=== PATIENT | female | born 1985 | race Caucasian/White ===

== ENCOUNTER 2016-12-07 13:42 | Emergency (ER) | payer BC ==
[~2016-12-07] VITALS: Ht 147.3 cm; Wt 99.8 kg
[2016-12-07 13:56] VITALS: BP 129/90
--- NOTE | 2016-12-07 14:57 | NUR ---
PT AMBULATED TO BED 5
--- NOTE | 2016-12-07 15:00 | NUR ---
PT CAME TO ER W/C/O SOB X LAST 2 HR WITH LEFT SIDED CP PRESSURE RADIATING TO THE BACK.PT STATES IT HAPPENED AFTER EATING AND TAKING HER CLINDAMYCIN. PT VSTATES THAT SHE HAS PERSISTANT COUGHING, BODYACHES,FEVER X1 WK RX STARTED TAKING CLINDAMYCIN 300MG PO TID--12/06/2016 DX STREPTHROAT.PT DENIES MEDICAL HX.PT AAOX4;NO ACUTE DISTRESS NOTED AT THIS TIME;HOB ELEVATED;NEEDS ATTENDED;SAFETY PRECAUTION INSTITUTED;ALL MONITORS IN PLACED. MADE AWARE OF PT'S CONDITION.
--- NOTE | 2016-12-07 15:28 | NUR ---
DR TIDWELL AT BEDSIDE.
--- NOTE | 2016-12-07 15:38 | NUR ---
PT AMBULATED TO THE RESTROOOM.
--- NOTE | 2016-12-07 15:38 | NUR ---
Indio montero in [facility] - 12/07/16 at 1538 by MARYANN PT AMBULATED TO TE RESTROOOM
[2016-12-07] MEDS ORDERED: PROMETH/CODEINE 6.25-10MG/5ML 5 ML UDC PO ONE (15:40)
--- NOTE | 2016-12-07 15:47 | NUR ---
AWARE OF THE RESULT OF URINE DIPSTICK AND PREG
--- NOTE | 2016-12-07 16:54 | NUR ---
PT ALERT AND AWAKE; AT BEDSIDE;NO ACUTE DISTRESS NOTED AT THIS TIME;WILL CONTINUE TO MONITOR PT.
[2016-12-07] MEDS ORDERED: ALBUTEROL SULFATE/IPRATROPIU 3 ML SOL IH ONE (17:30)
--- NOTE | 2016-12-07 17:37 | NUR ---
RT AT BEDSIDE
[2016-12-07] MEDS ORDERED: KETOROLAC 60 MG/2 ML VIAL IM ONE (17:45)
[2016-12-07 18:40] VITALS: BP 127/78
--- NOTE | 2016-12-07 18:41 | NUR ---
Patient discharged with v/s stable. Written and verbal after care instructions given and explained. Patient alert, oriented and verbalized understanding of instructions. Ambulatory with steady gait. All questions addressed prior to discharge. ID band removed. Patient advised to follow up with PMD. Rx of PROMETHAZINE HYDROCHLORIDE given. Patient educated on indication of medication including possible reaction and side effects. Opportunity to ask questions provided and answered.
== END 2016-12-07 18:41 | disposition home or self-care (01) ==
LOC: MED 13:42
DX: R07.89 Other chest pain (principal); R06.02 Shortness of breath; R05 Cough; Z83.3 Family history of diabetes mellitus
CPT/HCPCS: 36415; 71010; 80048; 81002; 81025; 84484; 85379; 93005; 94640; 96372; 99285; J1885; J7620

== ENCOUNTER 2019-11-26 13:26 | Emergency (ER) | payer BC ==
[~2019-11-26] VITALS: Ht 170.2 cm; Wt 100.9 kg
[2019-11-26 13:48] VITALS: BP 125/71
--- NOTE | 2019-11-26 14:10 | NUR ---
34/F presents ambulatory to ED, c/o intermittent sharp RUQ/R Flank pain x2 days. Denies fever/chills, n/v/d, constipation or dysuria. 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 Reports R arm numbness when laying flat. Pt awake and alert, skin normal warm and dry, rr even and unlabored. Lung sounds clear BL. BS active x4, abd soft round tender to RUQ. Denies med hx or rx.
--- NOTE | 2019-11-26 16:07 | NUR ---
LAB AT BEDSIDE.
[2019-11-26 16:30] LABS: BASOPHILS % (AUTO) 0.4 % (0.0-2.0); EOSINOPHILS # (AUTO) 0.3 K/uL (0-0.4); EOSINOPHILS % (AUTO) 3.7 % (0.0-4.0); HEMATOCRIT 39.9 % (36-48); HEMOGLOBIN 13.7 g/dL (12.0-16.0); LYMPHOCYTES # (AUTO) 2.6 K/uL (2.5-16.5); LYMPHOCYTES % (AUTO) 35.8 % (20.5-51.1); MEAN CORPUSCULAR HEMOGLOBIN 29 pg (27-31); MEAN CORPUSCULAR HGB CONC 34 g/dL (33-37); MEAN CORPUSCULAR VOLUME 84.9 fL (80-94); MONOCYTES # (AUTO) 0.4 K/uL (0.8-1.0); NEUTROPHILS % (AUTO) 54.1 % (42.2-75.2); PLATELET COUNT (AUTO) 265 K/uL (140-450); RED CELL DISTRIBUTION WIDTH 13.4 % (11.6-13.7); WHITE BLOOD COUNT (AUTO) 7.3 K/uL (4.8-10.8)
[2019-11-26] MEDS ORDERED: KETOROLAC 60 MG/2 ML VIAL IM ONE (16:35)
[2019-11-26 16:47] LABS: ALBUMIN 3.6 g/dL (3.4-5.0); ANION GAP 8.3 (8-16); CARBON DIOXIDE 32.5 mmol/L (21-32); CREATININE 0.8 mg/dL (0.6-1.3); POTASSIUM 3.8 mmol/L (3.5-5.1); TOTAL BILIRUBIN 0.5 mg/dL (0.0-1.0)
[2019-11-26 17:27] VITALS: BP 119/79
[2019-11-26 19:50] LABS: APPEARANCE,URINE CLEAR (CLEAR); BILIRUBIN,URINE NEGATIVE (NEGATIVE); BLOOD, URINE NEGATIVE (NEGATIVE); COLOR,URINE YELLOW (YELLOW); LEUKOCYTE ESTERASE ,URINE NEGATIVE (NEGATIVE); NITRITE, URINE NEGATIVE (NEGATIVE); PH,URINE 6.5 (5.0-9.0); UGLUCOSE NEGATIVE (NEGATIVE)
== END 2019-11-26 17:27 | disposition home or self-care (01) ==
LOC: MED 13:26
DX: R10.11 Right upper quadrant pain (principal); Z98.890 Other specified postprocedural states
CPT/HCPCS: 36415; 74176; 76705; 80053; 81003; 81025; 83690; 85025; 96372; 99285; J1885; Q0092; 81002

== ENCOUNTER 2020-12-23 17:06 | Outpatient (CLI) | payer OTHER ==
[2020-12-23 17:42] LABS: BASOPHILS % (AUTO) 0.4 % (0.0-2.0); EOSINOPHILS # (AUTO) 0.4 K/uL (0-0.4); EOSINOPHILS % (AUTO) 4.1 % (0.0-4.0); HEMATOCRIT 40.1 % (36-48); HEMOGLOBIN 13.4 g/dL (12.0-16.0); LYMPHOCYTES # (AUTO) 3.2 K/uL (2.5-16.5); LYMPHOCYTES % (AUTO) 36.3 % (20.5-51.1); MEAN CORPUSCULAR HEMOGLOBIN 30 pg (27-31); MEAN CORPUSCULAR HGB CONC 34 g/dL (33-37); MEAN CORPUSCULAR VOLUME 88.4 fL (80-94); MONOCYTES # (AUTO) 0.3 K/uL (0.8-1.0); MONOCYTES % (AUTO) 3.9 % (1.7-9.3); NEUTROPHILS # (AUTO) 4.8 K/uL (1.8-7.7); NEUTROPHILS % (AUTO) 55.3 % (42.2-75.2); PLATELET COUNT (AUTO) 306 K/uL (140-450); RED BLOOD CELL COUNT(AUTO) 4.54 MIL/uL (4.20-5.40); RED CELL DISTRIBUTION WIDTH 13.8 % (11.6-13.7); WHITE BLOOD COUNT (AUTO) 8.8 K/uL (4.8-10.8)
[2020-12-23 19:35] LABS: POTASSIUM 3.4 mmol/L (3.5-5.1)
[2020-12-23 19:36] LABS: ALBUMIN 3.7 g/dL (3.4-5.0); ANION GAP 10.1 (8-16); CARBON DIOXIDE 29.3 mmol/L (21-32); CREATININE 0.7 mg/dL (0.6-1.3); TOTAL BILIRUBIN 0.3 mg/dL (0.0-1.0)
[2020-12-23 19:37] LABS: CHOL/HDL RATIO 5.6 (1-4.5)
[2020-12-24 09:06] LABS: ESTRADIOL SERUM 37.6 pg/mL (.); FOLLICLE STIMULATING HORMONE 9.7 mIU/mL (.); T4 (THYROXINE) 9.3 ug/dL (4.5-12.0)
[2020-12-25 09:06] LABS: THYROID PEROXIDASE (TPO) AB 10 IU/mL (0-34)
== END 2020-12-23 18:59 | disposition home or self-care (01) ==
LOC: MLB 17:06
PROVIDERS: ATTEND Obstetrics & Gynecology
DX: N92.6 Irregular menstruation, unspecified (principal)
CPT/HCPCS: 36415; 80053; 82306; 82607; 82670; 83001; 83036; 84402; 84403; 84436; 84481; 85025; 86376; 86800

== ENCOUNTER 2021-01-30 10:49 | Emergency (ER) | payer OTHER ==
[~2021-01-30] VITALS: Ht 170.2 cm; Wt 104.3 kg
[2021-01-30 11:06] VITALS: BP 153/110
--- NOTE | 2021-01-30 11:11 | NUR ---
PT AMBULATED TO ER BED 3.
--- NOTE | 2021-01-30 11:15 | NUR ---
35 Y/O FEMALE C/O FLU-LIKE SYMPTOMS X 1 WEEK. PT STATES SHE IS FEELING CHEST PAIN 6/10 DESCRIBES TIGHTNESS NON-RADIATING, SOB, HAS A NON-PRODUCTIVE COUGH, RUNNY NOSE WITH INTERMITTENT FEVER, SORE THROAT, AND LOSS OF TASTE. PT DENIES N/V/D. PT COMPLETED 2ND COVID VACCINE ON OCT 20, 2020. PMH: BORDERLINE HTN, HYPOTHYROID MEDS: B12, ARMOUR THYROID, METFORMIN NKA
--- NOTE | 2021-01-30 11:48 | NUR ---
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
--- NOTE | 2021-01-30 11:51 | NUR ---
Collected MENA JORDAN and MENA SHEETS, walked to lab. Gave to frankie Ladd.
--- NOTE | 2021-01-30 12:11 | NUR ---
Dr. Dobbins is evaluating the patient at bedside.
[2021-01-30] MEDS ORDERED: ALBUTEROL HFA MDI 90 MCG/ACTUATION 8 GM INH ONE (12:25)
[2021-01-30] MEDS ORDERED: ALBU0.0912 IH (12:26)
--- NOTE | 2021-01-30 12:44 | NUR ---
Patient discharged with v/s stable. Written and verbal after care instructions given COVID19 and explained. Patient alert, oriented and verbalized understanding of instructions. Ambulatory with steady gait. All questions addressed prior to discharge. ID band removed. Patient advised to follow up with PMD. Rx of ALBUTEROL 2PUFFS Q4-6H PRN SOB AND COUGH given. Patient educated on indication of medication including possible reaction and side effects. Opportunity to ask questions provided and answered.
[2021-01-30 12:45] VITALS: BP 153/110
== END 2021-01-30 12:44 | disposition home or self-care (01) ==
LOC: MED 10:49
DX: M79.10 Myalgia, unspecified site (principal); R50.9 Fever, unspecified; R43.9 Unspecified disturbances of smell and taste; Z20.822 Contact with and (suspected) exposure to COVID-19
CPT/HCPCS: 71045; 87426; 93005; 99285; U0003